=== PATIENT | male | born 1990 | race Caucasian/White ===

== ENCOUNTER 2019-01-01 01:56 | Emergency (ER) | payer BC ==
[~2019-01-01] VITALS: Ht 190.5 cm; Wt 80.0 kg
--- NOTE | 2019-01-01 02:22 | NUR ---
PT BIB [facility] C/O GF STATING PT WAS FINE ONE MOMENT AND THEN "OUT IN THE BACK SEAT FOR 5 TO 10 SECONDS." PT STATES SHARP CP OF 10/10 IN L SIDE OF CHEST W/ ASSOCIATED SOB. STATES FAMILY HX OF HEART DISEASE. PT INTERMITTENTLY GRASPING AT CHEST AND HOLDING BREATH FOR MULTIPLE SECONDS AND THEN HYPERVENTILATING BEFORE BREATHING NORMALLY. EKG ACCOMPLISHED DIRECTLY INTO ED. PT OFFERED MEDICATION AND ASA. PT OFFERED ALL MEDICATION AND NEEDED TO BE COAXED AND EDUCATED TO BE TESTED. ALL MONITORING APPLIED. GF AT BEDSIDE. AWAITING LAB RESULTS AND CXR. Addendum: 01/01/19 at 0251 by MOIRA PT BIB [facility] C/O GF STATING PT WAS FINE ONE MOMENT AND THEN "OUT IN THE BACK SEAT FOR 5 TO 10 SECONDS." PT STATES SHARP CP OF 10/10 IN L SIDE OF CHEST W/ ASSOCIATED SOB. STATES FAMILY HX OF HEART DISEASE. PT INTERMITTENTLY GRASPING AT CHEST AND HOLDING BREATH FOR MULTIPLE SECONDS AND THEN HYPERVENTILATING BEFORE BREATHING NORMALLY. EKG ACCOMPLISHED DIRECTLY INTO ED. PT OFFERED MEDICATION AND ASA. PTREFUSED ALL MEDICATION AND NEEDED TO BE COAXED AND EDUCATED TO BE TESTED. ALL MONITORING APPLIED. GF AT BEDSIDE. AWAITING LAB RESULTS AND CXR.
[2019-01-01 02:29] LABS: BASOPHILS # (AUTO) 0.03 x10^3/uL (0-0.1); BASOPHILS % (AUTO) 0 % (0-1); EOSINOPHILS # (AUTO) 0.34 x10^3/uL (0-0.4); EOSINOPHILS % (AUTO) 5 % (1-7); LYMPHOCYTES # (AUTO) 3.17 x10^3/uL (1-3.4); LYMPHOCYTES % (AUTO) 47 % (22-44); MD NO; MEAN CORPUSCULAR HGB CONC 34.4 g/dL (33.2-36.2); MEAN CORPUSCULAR VOLUME 93.2 fL (81-97); MEAN PLATELET VOLUME 8.6 fL (7.4-10.4); MONOCYTES % (AUTO) 7 % (2-9); NEUTROPHILS # (AUTO) 2.76 x10^3/uL (1.8-6.8); NEUTROPHILS % (AUTO) 41 % (42-75); PLATELET COUNT 184 x10^3/uL (130-400); RED BLOOD COUNT 4.58 x10^6/uL (4.38-5.82); RED CELL DISTRIBUTION WIDTH 12.4 % (9.4-14.8)
[2019-01-01 02:37] LABS: ALANINE AMINOTRANSFERASE 43 U/L (12-78); ALBUMIN 4.8 g/dL (3.4-5.0); ANION GAP 8 mmol/L (5-15); CHLORIDE 114 mmol/L (98-107); CREATININE 1.16 mg/dL (0.7-1.3)
[2019-01-01 02:42] LABS: ALKALINE PHOSPHATASE 46 U/L (45-117); BILIRUBIN,TOTAL 0.4 mg/dL (0.2-1.0); TOTAL PROTEIN 7.9 g/dL (6.4-8.2); TROPONIN I < 0.015 ng/mL (0.000-0.045)
--- NOTE | 2019-01-01 02:45 | NUR ---
PT TRYING TO LEAVE MULTIPLE TIMES. EDUCATED AND REASSURED BY THIS RN. PT AGREES TO STAY TO SEE RESULTS OF TEST. GF STILL AT BEDSIDE.
--- NOTE | 2019-01-01 02:50 | NUR ---
ALL RESULTS BACK. PT UP FOR RECHECK. PT DENYING FURTHER CP AT THIS TIME. PT AMB TO RR MULTIPLE TIMES. REMAINS A+Ox4 AND NEURO INTACT.
[2019-01-01 03:06] VITALS: BP 131/74
== END 2019-01-01 03:07 | disposition home or self-care (01) ==
LOC: ED 03:05
DX: R07.89 Other chest pain (principal); R55 Syncope and collapse
CPT/HCPCS: 36415; 71045; 80053; 83880; 84484; 85025; 93005; 99284